=== PATIENT | female | born 1980 | race Caucasian/White ===

== ENCOUNTER 2017-01-11 14:40 | Emergency (ER) | payer MEDICAID, OTHER ==
[2017-01-11] MEDS ORDERED: NAPROXEN 250 MG TABLET PO STA (14:56)
[2017-01-11] MEDS ORDERED: NAPROXEN 250 MG TABLET PO ONE (15:04)
== END 2017-01-11 16:01 | disposition home or self-care (01) ==
DX: M70.62 Trochanteric bursitis, left hip (principal); M25.461 Effusion, right knee
CPT/HCPCS: 73564; 99283; A9270

== ENCOUNTER 2017-03-11 17:26 | Emergency (ER) | payer MEDICAID ==
[2017-03-11 18:00] LABS: BILIRUBIN,URINE NEGATIVE (NEGATIVE)
[2017-03-11 18:01] LABS: UA w/ MICROSCOPIC CHARGE YES
[2017-03-11 18:03] LABS: HCG UR QUAL NEGATIVE
[2017-03-11 18:16] LABS: UR CULTURE IF IND NOT INDICATED
--- NOTE | 2017-03-11 18:47 | ED Physician Documentation ---
PD HPI ABD PAIN - Stated complaint Stated Complaint: RT BACK PX - Chief complaint Chief Complaint: Back Pain - History obtained from History obtained from: Patient - History of Present Illness Timing - onset: Today (about 11 am) Timing - duration: Hours (7 hours ago) Timing - details: Abrupt onset, Still present (worse the past hour or so) Quality: Cramping, Aching, Pain Location: RLQ Radiation: Right flank Improved by: No: Eating, Laying still, Position Worsened by: No: Eating, Moving, Breathing, Position, Palpation Associated symptoms: Nausea, Vomiting, Loss of appetite. No: Fever, Diarrhea, Dysuria, Near syncope / syncope, Vaginal dc Similar symptoms before: Has not had sx before Recently seen: Not recently seen Review of Systems Constitutional: denies: Fever, Chills Nose: denies: Rhinorrhea / runny nose, Congestion Throat: denies: Sore throat Respiratory: denies: Cough GI: reports: Abdominal Pain, Nausea, Vomiting. denies: Abdominal Swelling, Diarrhea : denies: Dysuria, Frequency, Discharge Skin: denies: Rash, Lesions Musculoskeletal: reports: Back pain. denies: Neck pain PD PAST MEDICAL HISTORY - Past Medical History Past Medical History: Yes Respiratory: Asthma GI: None : None Other Past Medical History: migraines - Present Medications Home Medications: Ambulatory Orders Medication Instructions Recorded Confirmed Albuterol Sulfate [Proair Hfa 1 puffs PO DAILY 01/11/17 03/11/17 Inhaler] Ranitidine HCl 150 mg PO DAILY 01/11/17 03/11/17 Sumatriptan Succinate [Imitrex] 50 mg PO DAILY 01/11/17 03/11/17 Topiramate [Topamax] 50 mg PO DAILY 01/11/17 03/11/17 Naproxen [Naprosyn] 500 mg PO BID PRN #20 tablet 03/11/17 Ondansetron HCl [Zofran] 4 mg PO Q6H PRN #20 tablet 03/11/17 Oxycodone HCl/Acetaminophen 1 each PO Q6H PRN #20 tablet 03/11/17 [Percocet 5-325 mg Tablet] Tamsulosin [Flomax] 0.4 mg PO DAILY #5 capsule 03/11/17 - Allergies Allergies/Adverse Reactions: Allergies Allergy/AdvReac Type Severity Reaction Status Date / Time sulfamethoxazole Allergy Unknown Verified 01/11/17 14:48 [From ] trimethoprim [From ] Allergy Unknown Verified 01/11/17 14:48 - Social History Does the pt smoke?: No Smoking Status: Never smoker Does the pt drink ETOH?: No Does the pt have substance abuse?: No PD ED PE NORMAL - Vitals Vital signs reviewed: Yes - General General: Alert and oriented X 3, Well developed/nourished, Other (appeara in considerable pain right flank.) - HEENT HEENT: Atraumatic - Neck Neck: Supple, no meningeal sign, No adenopathy - Cardiac Cardiac: RRR, No murmur - Respiratory Respiratory: Clear bilaterally - Abdomen Abdomen: Normal bowel sounds, Soft, Non distended, No organomegaly, Other (some tenderness right lower without guarding. ) - Female Female : Deferred - Rectal Rectal: Deferred - Back Back: Other (rigth CVA area with marked tenderness to percussion. ) - Derm Derm: Normal color, Warm and dry - Neuro Neuro: Alert and oriented X 3, No motor deficit, No sensory deficit - Psych Psych: Normal mood, Normal affect Results - Vitals Vitals: Oxygen O2 Source Room air - Labs Labs: Laboratory Tests 03/11/17 03/11/17 03/11/17 17:55 17:55 19:22 WBC 9.6 RBC 5.36 Hgb 17.1 H Hct 50.3 H MCV 93.9 MCH 31.9 H MCHC 34.0 RDW 13.4 Plt Count 159 MPV 9.9 Neut # 7.4 H Lymph # 1.2 L Slope # 0.9 Eos # 0.1 Baso # 0.1 Absolute Nucleated RBC 0.00 Nucleated RBCs 0.1 Sodium Potassium Chloride Carbon Dioxide Anion Gap BUN Creatinine Estimated GFR (MDRD) Glucose Calcium Total Bilirubin AST ALT Alkaline Phosphatase Total Protein Albumin Globulin Albumin/Globulin Ratio Lipase Urine Color YELLOW Urine Clarity CLEAR Urine pH 7.0 Ur Specific [place] 1.015 1.015 Urine Protein NEGATIVE Urine Glucose (UA) NEGATIVE Urine Ketones TRACE Urine Occult Blood NEGATIVE Urine Nitrite NEGATIVE Urine Bilirubin NEGATIVE Urine Urobilinogen 0.2 (NORMAL) Ur Leukocyte Esterase TRACE H Urine RBC 0-5 Urine WBC 4-5 Ur Squamous Epith Cells MOD Squamous H Amorphous Sediment Few Urine Bacteria Few Urine Mucus Few Strands Ur Microscopic Review INDICATED Urine Culture Comments NOT INDICATED Urine HCG, Qual NEGATIVE 03/11/17 19:22 WBC RBC Hgb Hct MCV MCH MCHC RDW Plt Count MPV Neut # Lymph # Slope # Eos # Baso # Absolute Nucleated RBC Nucleated RBCs Sodium 138 Potassium 3.1 L Chloride 100 L Carbon Dioxide 29 Anion Gap 9.0 BUN 12 Creatinine 0.8 Estimated GFR (MDRD) 81 L Glucose 90 Calcium 9.0 Total Bilirubin 1.7 H AST 26 ALT 29 Alkaline Phosphatase 69 Total Protein 7.1 Albumin 4.3 Globulin 2.8 Albumin/Globulin Ratio 1.5 Lipase 15 L Urine Color Urine Clarity Urine pH Ur Specific [place] Urine Protein Urine Glucose (UA) Urine Ketones Urine Occult Blood Urine Nitrite Urine Bilirubin Urine Urobilinogen Ur Leukocyte Esterase Urine RBC Urine WBC Ur Squamous Epith Cells Amorphous Sediment Urine Bacteria Urine Mucus Ur Microscopic Review Urine Culture Comments Urine HCG, Qual - Rads (name of study) KUB CT Radiology: Prelim report reviewed, EMP read contemporaneously (4 mm stone proximal ureter with moderate obstruction) PD MEDICAL DECISION MAKING - ED course Complexity details: re-evaluated patient (feeling much better with IV meds, and stays mild level after awhile. Can try going home. ), considered differential ( likely kidney stone, but consider other abd process. ), d/w patient Departure - Departure Disposition: 01 Home, Self Care Clinical Impression: Flank pain, acute, Ureterolithiasis Condition: Stable Record reviewed to determine appropriate education?: Yes Instructions: ED Stone Renal W Colic Follow-Up: Angela Boudreaux PA [Primary Care Provider] - [facility] [Provider Group] Prescriptions: Tamsulosin [Flomax] 0.4 mg PO DAILY #5 capsule Naproxen [Naprosyn] 500 mg PO BID PRN #20 tablet PRN Reason: Pain Oxycodone HCl/Acetaminophen [Percocet 5-325 mg Tablet] 1 each PO Q6H PRN #20 tablet PRN Reason: Pain Ondansetron HCl [Zofran] 4 mg PO Q6H PRN #20 tablet PRN Reason: Nausea / Vomiting Comments: Drink lots of fluids. You have a 4 mm kidney stone in the upper part of the ureter. Typical these are given several days to try to pass and most do. Naproxen twice daily for inflammation and pain. Add Tylenol for mild pain and percocet for worse pain. Zofran if needed for nausea. Tamsulosin tries to help the ureter relax to allow easier passage. Follow up with Urology, call tomorrow for advise on follow up appt. Return to ER if severe pain again despite oral medications. Discharge Date/Time: 03/11/17 21:26
[2017-03-11] MEDS ORDERED: ONDANSETRON 4 MG/2 ML VIAL IVP STA (18:58)
[2017-03-11] MEDS ORDERED: HYDROmorphone 1 MG/ML SYRINGE IVP STA (18:58)
[2017-03-11] MEDS ORDERED: SODIUM CHLORIDE 0.9% 1,000 ML IV ONE (18:58)
[2017-03-11] MEDS ORDERED: KETOROLAC 60 MG/2 ML VIAL IVP STA (18:58)
[2017-03-11] MEDS ORDERED: KETOROLAC 30 MG/ML VIAL ONE (19:25)
[2017-03-11] MEDS ORDERED: HYDROmorphone 1 MG/ML SYRINGE ONE (19:26)
[2017-03-11] MEDS ORDERED: ONDANSETRON 4 MG/2 ML VIAL ONE (19:26)
[2017-03-11 19:34] LABS: BASOPHILS # (AUTO) 0.1 10^3/uL (0.0-0.1); BASOPHILS % (AUTO) 0.6 %; EOSINOPHILS # (AUTO) 0.1 10^3/uL (0.0-0.7); EOSINOPHILS % (AUTO) 0.9 %; HCT - HEMATOCRIT 50.3 % (37.0-47.0); HGB - HEMOGLOBIN 17.1 g/dL (12.0-16.0); LYMPHOCYTES # (AUTO) 1.2 10^3/uL (1.5-3.5); LYMPHOCYTES % (AUTO) 12.1 %; MEAN CORPUSCULAR HEMOGLOBIN 31.9 pg (27.0-31.0); MEAN CORPUSCULAR VOLUME 93.9 fL (81.0-99.0); MEAN PLATELET VOLUME 9.9 fL (7.9-10.8); MONOCYTES # (AUTO) 0.9 10^3/uL (0.0-1.0); MONOCYTES % (AUTO) 9.1 %; NEUTROPHILS # (AUTO) 7.4 10^3/uL (1.5-6.6); NEUTROPHILS % (AUTO) 77.3 %; NUCLEATED RED BLOOD CELLS AUTO 0.1 /100WBC; RED BLOOD COUNT 5.36 10^6/uL (4.20-5.40); RED CELL DISTRIBUTION WIDTH 13.4 % (12.0-15.0); UNCORRECTED WHITE BLOOD COUNT 9.6 x10^3/uL; WHITE BLOOD COUNT 9.6 x10^3/uL (4.8-10.8)
[2017-03-11 19:40] LABS: ALBUMIN/GLOBULIN RATIO 1.5 (1.0-2.2); BILIRUBIN,TOTAL 1.7 mg/dL (0.2-1.0); CREATININE 0.8 mg/dL (0.4-1.0); POTASSIUM 3.1 mmol/L (3.5-5.0); TOTAL PROTEIN 7.1 g/dL (6.7-8.2)
--- NOTE | 2017-03-11 19:46 | CT Preliminary Report ---
Exam: CT KUB IMPRESSION: 1. Obstructive 4 mm proximal right ureteral stones resulting in moderate to marked right hydroureter and hydronephrosis and perinephric fat stranding. Additional nonobstructing bilateral renal stones. N o obstructing left-sided stones. 2. Diverticulosis without inflammation. [facility] SITE ID: [id number]
--- NOTE | 2017-03-11 20:12 | CT Report ---
EXAM: CT ABDOMEN AND PELVIS (CT KUB) EXAM DATE: 03/11/2017 07:21 p.m. CLINICAL HISTORY: Right flank to low abdominal pain, onset 11 a.m. today. COMPARISONS: None. TECHNIQUE: Routine axial helical CT imaging was performed through the abdomen and pelvis without IV c ontrast. Reconstructions: Coronal and sagittal. In accordance with CT protocol optimization, one or more of the following dose reduction techniques w ere utilized for this exam: automated exposure control, adjustment of mA and/or KV based on patient s ize, or use of iterative reconstructive technique. FINDINGS: Lung Bases: Unremarkable. Right Kidney/Ureter: 4 mm proximal right ureteral stone results in moderate to marked hydroureter and hydronephrosis. Marked perinephric fat stranding. No contour deforming renal mass noted. At least f our nonobstructing right-sided stones including a 2 mm right mid and 2 mm right inferior stones. Left Kidney/Ureter: At least four nonobstructing left-sided renal stones ranging in size from 2-4 mm. No hydronephrosis, hydroureter or perinephric fat stranding. Other Solid Organs: Noncontrast images of the solid organs are grossly unremarkable. Gallbladder/Bile Ducts: Unremarkable. Peritoneal Cavity: No free fluid, free air or lilia adenopathy. Bowel is grossly unremarkable. There are multiple diverticula seen which most severely affect the sigmoid colon. No wall thickening or adj acent inflammation seen. No obstruction noted. Pelvic Organs: No bladder stones or wall thickening. Noncontrast images of the visualized pelvic orga ns are unremarkable. Vasculature: Unremarkable. Other: None. IMPRESSION: 1. Obstructing 4 mm proximal right ureteral stone results in moderate to marked right hydroureter and hydronephrosis and perinephric fat stranding. Additional nonobstructing bilateral renal stones. No o bstructing left-sided stones. 2. Diverticulosis without inflammation. [facility] Referring Provider Line: [phone] SITE ID: [id number]
[2017-03-11] MEDS ORDERED: DEXAMETHASONE 10 MG/ML VIAL IVP STA (20:44)
[2017-03-11] MEDS ORDERED: ONDANSETRON ODT 4 MG Prepack 2 TL PRN (20:44)
[2017-03-11] MEDS ORDERED: oxyCODONE/ACET 5/325 Prepack 4 PO STA (20:44)
[2017-03-11] MEDS ORDERED: TAMSULOSIN 0.4 MG CAPSULE PO STA (20:44)
[2017-03-11] MEDS ORDERED: DEXAMETHASONE 10 MG/ML VIAL ONE (20:49)
[2017-03-11] MEDS ORDERED: TAMSULOSIN 0.4 MG CAPSULE ONE (20:49)
[2017-03-11] MEDS ORDERED: oxyCODONE/ACET 5/325 Prepack 4 PO ONE (20:49)
[2017-03-11] MEDS ORDERED: ONDANSETRON ODT 4 MG Prepack 2 TL ONE (20:49)
[2017-03-11 20:56] VITALS: BP 145/92
== END 2017-03-11 21:26 | disposition home or self-care (01) ==
LOC: ED 17:26
DX: N20.1 Calculus of ureter (principal)
CPT/HCPCS: 36415; 74176; 80053; 81001; 81025; 83690; 85025; 96374; 96375; 99284; A9270; J1170; 81003; 87086

== ENCOUNTER 2017-10-10 05:03 | Emergency (ER) | payer MEDICAID ==
[2017-10-10 05:14] VITALS: BP 123/74
--- NOTE | 2017-10-10 05:23 | ED Physician Documentation ---
PD HPI HEENT - Stated complaint Stated Complaint: FACIAL PX - Chief complaint Chief Complaint: Heent - History obtained from History obtained from: Patient - History of Present Illness Timing - onset: How many days ago (few) Timing - duration: Days (few) Timing - details: Gradual onset, Still present Location: Tooth (left lower) Improves: No: Medication Associated symptoms: Facial swelling. No: Fever Recently seen: Not recently seen Review of Systems Constitutional: denies: Fever, Chills Nose: denies: Rhinorrhea / runny nose, Congestion Throat: reports: Dental pain / toothache. denies: Sore throat Respiratory: denies: Cough PD PAST MEDICAL HISTORY - Past Medical History Respiratory: Asthma GI: None : None - Present Medications Home Medications: Ambulatory Orders Medication Instructions Recorded Confirmed Albuterol Sulfate [Proair Hfa 1 puffs PO DAILY 01/11/17 03/11/17 Inhaler] Sumatriptan Succinate [Imitrex] 50 mg PO DAILY 01/11/17 03/11/17 Topiramate [Topamax] 50 mg PO DAILY 01/11/17 03/11/17 raNITIdine HCl [Ranitidine HCl] 150 mg PO DAILY 01/11/17 03/11/17 Naproxen [Naprosyn] 500 mg PO BID PRN #20 tablet 03/11/17 Ondansetron HCl [Zofran] 4 mg PO Q6H PRN #20 tablet 03/11/17 Oxycodone HCl/Acetaminophen 1 each PO Q6H PRN #20 tablet 03/11/17 [Percocet 5-325 mg Tablet] Tamsulosin [Flomax] 0.4 mg PO DAILY #5 capsule 03/11/17 Clindamycin HCl [Cleocin HCl] 300 mg PO QID #24 capsule 10/10/17 HYDROcod/ACETAM 5/325 [[place] 5/325] 1 tab PO Q6H PRN #15 tablet 10/10/17 - Allergies Allergies/Adverse Reactions: Allergies Allergy/AdvReac Type Severity Reaction Status Date / Time sulfamethoxazole Allergy Unknown Verified 10/10/17 05:10 [From ] trimethoprim [From ] Allergy Unknown Verified 10/10/17 05:10 - Social History Does the pt smoke?: No Smoking Status: Never smoker Does the pt drink ETOH?: No Does the pt have substance abuse?: No PD ED PE NORMAL - Vitals Vital signs reviewed: Yes - General General: Alert and oriented X 3, No acute distress, Well developed/nourished - HEENT HEENT: Moist mucous membranes, Pharynx benign. No: Dentition benign (left lower tooth with tenderness, caries. gum with swelling, but not fluctuance. Facial swelling, but not abscess feeling left mandibular area. ) - Neck Neck: Supple, no meningeal sign, No adenopathy - Cardiac Cardiac: RRR, No murmur - Respiratory Respiratory: Clear bilaterally Results - Vitals Vitals: Vital Signs - 24 hr 10/10/17 05:05 Temperature 37.0 C Heart Rate 85 Respiratory 18 Rate Blood Pressure 123/74 O2 Saturation 100 Oxygen O2 Source Room air PD MEDICAL DECISION MAKING - ED course Complexity details: considered differential, d/w patient Departure - Departure Disposition: 01 Home, Self Care Clinical Impression: Infected dental caries Condition: Stable Record reviewed to determine appropriate education?: Yes Instructions: ED Abscess Dental Follow-Up: Angela Boudreaux PA [Primary Care Provider] - Prescriptions: Clindamycin HCl [Cleocin HCl] 300 mg PO QID #24 capsule HYDROcod/ACETAM 5/325 [[place] 5/325] 1 tab PO Q6H PRN #15 tablet PRN Reason: Pain Comments: Rinse the mouth with antiseptic such as Listerine 2-3 times a day. Continue ibuprofen 400-600 mg 3 times a day for pain and inflammation. Add Tylenol or hydrocodone if needed for pain. Clindamycin 4 times a day as directed for the infection. Recheck if not improving well over the next several days. Follow- up with a dentist at earliest availability for care of this tooth and presumably extraction of it so it does not become recurring abscess. Ultimately you can get care from an oral surgeon for the multiple dental cavities. Discharge Date/Time: 10/10/17 06:15
[2017-10-10] MEDS ORDERED: ACETAMINOPHEN 325 MG TABLET PO STA (05:40)
[2017-10-10] MEDS ORDERED: CLINDAMYCIN 150 MG CAPSULE PO STA (05:40)
[2017-10-10] MEDS ORDERED: HYDROcod/ACET 5/325 Prepack 6 PO STA (05:40)
== END 2017-10-10 06:15 | disposition home or self-care (01) ==
LOC: ED 05:03
DX: K04.7 Periapical abscess without sinus (principal)
CPT/HCPCS: 99283; A9270

== ENCOUNTER 2017-11-07 12:08 | Emergency (ER) | payer OTHER, MEDICAID ==
[2017-11-07 12:21] VITALS: BP 112/78
--- NOTE | 2017-11-07 12:48 | ED Physician Documentation ---
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 She is latex allergic but we do not think the gloves were made of latex. There is no reaction anywhere other than the hands and wrists.) Review of Systems Constitutional: denies: Fever, Chills Respiratory: denies: Dyspnea, Cough GI: denies: Abdominal Pain : denies: Now EGA PD PAST MEDICAL HISTORY - Past Medical History Cardiovascular: None Respiratory: Asthma Neuro: None Endocrine/Autoimmune: None GI: None KNOT BORER: None : None HEENT: None Psych: None Musculoskeletal: None Derm: None - Present Medications Home Medications: Ambulatory Orders Medication Instructions Recorded Confirmed Albuterol Sulfate [Proair Hfa 1 puffs PO DAILY 01/11/17 03/11/17 Inhaler] Sumatriptan Succinate [Imitrex] 50 mg PO DAILY 01/11/17 03/11/17 Topiramate [Topamax] 50 mg PO DAILY 01/11/17 03/11/17 raNITIdine HCl [Ranitidine HCl] 150 mg PO DAILY 01/11/17 03/11/17 Ondansetron HCl [Zofran] 4 mg PO Q6H PRN #20 tablet 03/11/17 Triamcinolone 0.1% Oint [Kenalog 1 gm TOP BID #3 tube 11/07/17 0.1% Oint] predniSONE [Deltasone] 60 mg PO DAILY 3 Days tablet 11/07/17 - Allergies Allergies/Adverse Reactions: Allergies Allergy/AdvReac Type Severity Reaction Status Date / Time sulfamethoxazole Allergy Unknown Verified 10/10/17 05:10 [From ] trimethoprim [From ] Allergy Unknown Verified 10/10/17 05:10 - Social History Does the pt smoke?: No Smoking Status: Never smoker Does the pt drink ETOH?: No Does the pt have substance abuse?: No - Immunizations Immunizations are current?: No - POLST Patient has POLST: No PD ED PE NORMAL - Vitals Vital signs reviewed: Yes - General General: Alert and oriented X 3, No acute distress - Derm Derm: Other (She has mild eczema of the dorsal hands, with hypopigmentation.) - Neuro Neuro: Alert and oriented X 3, Normal speech Results - Vitals Vitals: Vital Signs - 24 hr 11/07/17 12:19 Temperature 36 C L Heart Rate 72 Respiratory 15 Rate Blood Pressure 112/78 O2 Saturation 100 Oxygen O2 Source Room air Departure - Departure Disposition: Home, Self Care Clinical Impression: Allergic eczema Condition: Good Record reviewed to determine appropriate education?: Yes Instructions: ED Dermatitis Atopic Eczema Prescriptions: predniSONE [Deltasone] 60 mg PO DAILY 3 Days tablet Triamcinolone 0.1% Oint [Kenalog 0.1% Oint] 1 gm TOP BID #3 tube Comments: Call your doctor to arrange a follow-up appointment, make the next available appointment. In the interim, return anytime if worse or if new symptoms develop. Forms: Activity restrictions Discharge Date/Time: 11/07/17 12:54
== END 2017-11-07 12:54 | disposition home or self-care (01) ==
LOC: ED 12:08
DX: L23.9 Allergic contact dermatitis, unspecified cause (principal); Z91.040 Latex allergy status
CPT/HCPCS: 1040M; 99283

== ENCOUNTER 2018-11-29 11:41 | Outpatient (CLI) | payer MEDICAID ==
[2018-11-29 18:58] LABS: BASOPHILS % (AUTO) 0.2 %; EOSINOPHILS # (AUTO) 0.1 10^3/uL (0.0-0.7); EOSINOPHILS % (AUTO) 2.7 %; HGB - HEMOGLOBIN 13.5 g/dL (12.0-16.0); LYMPHOCYTES # (AUTO) 1.7 10^3/uL (1.5-3.5); LYMPHOCYTES % (AUTO) 36.7 %; MEAN CORPUSCULAR HEMOGLOBIN 29.6 pg (27.0-31.0); MEAN CORPUSCULAR HGB CONC 33.2 g/dL (32.0-36.0); MEAN CORPUSCULAR VOLUME 89.2 fL (81.0-99.0); MEAN PLATELET VOLUME 9.8 fL (7.9-10.8); MONOCYTES # (AUTO) 0.3 10^3/uL (0.0-1.0); MONOCYTES % (AUTO) 6.9 %; NEUTROPHILS # (AUTO) 2.4 10^3/uL (1.5-6.6); NEUTROPHILS % (AUTO) 53.5 %; PLT - PLATELET COUNT 193 10^3/uL (130-450); RED BLOOD COUNT 4.57 10^6/uL (4.20-5.40); RED CELL DISTRIBUTION WIDTH 12.7 % (12.0-15.0); WHITE BLOOD COUNT 4.6 x10^3/uL (4.8-10.8)
[2018-11-29 19:38] LABS: ALBUMIN 4.2 g/dL (3.2-5.5); ALBUMIN/GLOBULIN RATIO 1.7 (1.0-2.2); ALKALINE PHOSPHATASE 52 IU/L (42-121); ALT ALANINE AMINOTRANSFERASE 13 IU/L (10-60); AST ASPARTATE AMINOTRANSFERASE 17 IU/L (10-42); BILIRUBIN,TOTAL 0.9 mg/dL (0.2-1.0); BUN - BLOOD UREA NITROGEN 15 mg/dL (6-20); CALCIUM 8.6 mg/dL (8.5-10.3); CARBON DIOXIDE - CO2 22 mmol/L (21-32); CHLORIDE 106 mmol/L (101-111); CHOL/HDL RATIO 2.2 (<4.4); CHOLESTEROL 131 mg/dL; CREATININE 0.7 mg/dL (0.4-1.0); GFR - MDRD 94 (>89); GLUCOSE 79 mg/dL (70-100); HDL CHOLESTEROL 60 mg/dL; LDL CHOLESTEROL,CALCULATED 62 mg/dL; SODIUM 137 mmol/L (135-145); TOTAL PROTEIN 6.7 g/dL (6.7-8.2); VLDL CHOLESTEROL 9 mg/dL
== END 2018-11-29 23:59 ==
LOC: LAB.N 11:41
PROVIDERS: ATTEND Nurse Practitioner
DX: F41.9 Anxiety disorder, unspecified (principal); G47.00 Insomnia, unspecified; G43.109 Migraine with aura, not intractable, without status migrainosus; R03.0 Elevated blood-pressure reading, without diagnosis of hypertension; R53.83 Other fatigue; E55.9 Vitamin D deficiency, unspecified
CPT/HCPCS: 36415; 80053; 80061; 82306; 83721; 84443; 85025

== ENCOUNTER 2018-12-02 20:15 | Emergency (ER) | payer MEDICAID ==
[2018-12-02 21:09] VITALS: BP 122/74
== END 2018-12-02 22:05 | disposition left against medical advice (07) ==
LOC: ED 20:15
DX: Z53.21 Procedure and treatment not carried out due to patient leaving prior to being seen by health care provider (principal)

== ENCOUNTER 2019-05-19 08:00 | Outpatient (CLI) | payer MEDICAID ==
[2019-05-19 21:49] LABS: CANDIDA GROUP DNA POSITIVE (NEGATIVE); CANDIDA KRUSEI DNA NEGATIVE (NEGATIVE); TRICHOMONAS VAGINALIS DNA NEGATIVE (NEGATIVE)
[2019-05-19 22:21] LABS: TRICHOMONAS VAGINALIS DNA NEGATIVE (NEGATIVE)
== END 2019-05-19 23:59 | disposition home or self-care (01) ==
LOC: LAB.R 08:00
PROVIDERS: ATTEND Obstetrics & Gynecology
DX: N93.0 Postcoital and contact bleeding (principal); Z20.2 Contact with and (suspected) exposure to infections with a predominantly sexual mode of transmission
CPT/HCPCS: 87491; 87591; 87661; 87801

== ENCOUNTER 2019-05-19 11:57 | Outpatient (CLI) | payer MEDICAID ==
[2019-05-20 11:09] LABS: HIV AG/AB 4TH GEN NON-REACTIVE (NON-REACTIVE)
== END 2019-05-19 11:58 | disposition home or self-care (01) ==
LOC: LAB 11:57
PROVIDERS: ATTEND Obstetrics & Gynecology
DX: N93.0 Postcoital and contact bleeding (principal); Z20.2 Contact with and (suspected) exposure to infections with a predominantly sexual mode of transmission
CPT/HCPCS: 36415; 81599; 86592; 86704; 86706; 86708; 86803; 87340; 87389; 87491; 87591; 87661; 87801

== ENCOUNTER 2019-06-13 16:20 | Outpatient (CLI) | payer MEDICAID ==
--- NOTE | 2019-06-14 08:30 | Ultrasound Report ---
Reason: POSTCOITAL BLEEDING, ABN VAGINAL BLEEDING Procedure Date: 06/13/2019 Accession Number: [id number] / [id number] Procedure: US - Pelvic w/Transvaginal CPT Code: FULL RESULT: EXAM: PELVIC ULTRASOUND EXAM DATE: 06/13/2019 05:10 PM. CLINICAL HISTORY: Abnormal postcoital vaginal bleeding. COMPARISON: None. TECHNIQUE: Realtime transabdominal pelvic scan performed to identify the uterus and adnexa and as an overview of other pelvic structures. Patient refused transvaginal imaging. Static image documentation. FINDINGS: Uterus: 6.9 x 3.6 x 11.5 cm, volume 59 cc. Anteverted position. Normal overall size and echotexture. Masses: None. Endometrium: 5.0 mm. Trace fluid within endometrial canal. Cervix: Unremarkable. Right Ovary: 3.2 x 1.6 x 2.6 cm, volume 7.0 cc. There is a benign appearing right ovarian cyst measuring 1.8 cm maximal diameter. No solid adnexal mass. Left Ovary: 3.1 x 2.3 x 2.6 cm, volume 9.8 cc. There is a benign appearing left ovarian cyst measuring 2.1 cm maximal diameter. Free Fluid: None. Other: None. IMPRESSION: 1. Small bilateral ovarian follicular cysts for which imaging follow-up is not required. 2. Trace endometrial fluid. 3. Otherwise negative examination. [facility]
== END 2019-06-13 16:21 | disposition home or self-care (01) ==
LOC: DI 16:20
PROVIDERS: ATTEND Obstetrics & Gynecology
DX: N83.02 Follicular cyst of left ovary (principal); N83.01 Follicular cyst of right ovary; N93.0 Postcoital and contact bleeding; N93.9 Abnormal uterine and vaginal bleeding, unspecified
CPT/HCPCS: 76830; 76856

== ENCOUNTER 2020-04-25 11:13 | Outpatient (CLI) | payer MEDICAID ==
[2020-04-25 18:58] LABS: BASOPHILS % (AUTO) 0.3 %; EOSINOPHILS # (AUTO) 0.1 10^3/uL (0.0-0.7); EOSINOPHILS % (AUTO) 1.7 %; HGB - HEMOGLOBIN 13.6 g/dL (12.0-16.0); LYMPHOCYTES # (AUTO) 1.5 10^3/uL (1.5-3.5); LYMPHOCYTES % (AUTO) 24.3 %; MEAN CORPUSCULAR HEMOGLOBIN 27.8 pg (27.0-31.0); MEAN CORPUSCULAR VOLUME 89.6 fL (81.0-99.0); MEAN PLATELET VOLUME 10.3 fL (7.9-10.8); MONOCYTES # (AUTO) 0.4 10^3/uL (0.0-1.0); MONOCYTES % (AUTO) 6.8 %; NEUTROPHILS % (AUTO) 66.6 %; PLT - PLATELET COUNT 292 10^3/uL (130-450); RED CELL DISTRIBUTION WIDTH 13.6 % (12.0-15.0)
[2020-04-25 19:39] LABS: ALBUMIN 4.3 g/dL (3.2-5.5); ALBUMIN/GLOBULIN RATIO 1.5 (1.0-2.2); ALKALINE PHOSPHATASE 64 IU/L (42-121); ALT ALANINE AMINOTRANSFERASE 12 IU/L (10-60); AST ASPARTATE AMINOTRANSFERASE 14 IU/L (10-42); BILIRUBIN,TOTAL 0.4 mg/dL (0.2-1.0); BUN - BLOOD UREA NITROGEN 19 mg/dL (6-20); CALCIUM 9.5 mg/dL (8.5-10.3); CARBON DIOXIDE - CO2 27 mmol/L (21-32); CHLORIDE 105 mmol/L (101-111); CHOL/HDL RATIO 2.3 (<4.4); CHOLESTEROL 142 mg/dL; CREATININE 0.9 mg/dL (0.4-1.0); GLUCOSE 92 mg/dL (70-100); HDL CHOLESTEROL 61 mg/dL; LDL CHOLESTEROL,CALCULATED 73 mg/dL; LDL/HDL RATIO 1.2 (<4.4); SODIUM 140 mmol/L (135-145); TOTAL PROTEIN 7.2 g/dL (6.7-8.2); VLDL CHOLESTEROL 8 mg/dL
== END 2020-04-25 23:59 | disposition home or self-care (01) ==
LOC: LAB.WCP 11:13
PROVIDERS: ATTEND Nurse Practitioner Family
DX: R03.0 Elevated blood-pressure reading, without diagnosis of hypertension (principal); F41.9 Anxiety disorder, unspecified; J45.40 Moderate persistent asthma, uncomplicated; K21.9 Gastro-esophageal reflux disease without esophagitis; G43.109 Migraine with aura, not intractable, without status migrainosus
CPT/HCPCS: 36415; 80053; 80061; 83721; 84443; 85025

== ENCOUNTER 2020-04-25 12:43 | Outpatient (CLI) | payer MEDICAID ==
--- NOTE | 2020-04-25 15:33 | XRAY Report ---
PROCEDURE: Lumbar Spine 2 View INDICATIONS: LOW BACK PAIN TECHNIQUE: 3 views of the lumbar spine were acquired. COMPARISON: None. FINDINGS: Bones: 5 [id number] vertebrae are present. There is normal bony alignment. No vertebral body compression fractures. No suspicious bony lesions. Soft tissues: Overlying bowel gas pattern is normal. No suspicious soft tissue calcifications. IMPRESSION: No trauma found, no subluxation present. A definite source of new back pain is not ident ified. Reviewed by: George Pond MD on 04/25/2020 12:44 PM PDT Approved by: George Pond MD on 04/25/2020 12:44 PM PDT Station ID: [id number]
--- NOTE | 2020-04-25 15:34 | XRAY Report ---
PROCEDURE: Hip 1 View LT INDICATIONS: LEFT HIP PAIN TECHNIQUE: 2 views of the hip were acquired. COMPARISON: CT KUB 03/11/2017. FINDINGS: Bones: No fractures or dislocations. There is a mild degree of hip joint osteoarthritis bilaterally slightly greater on the right than the left. No suspicious bony lesions. The visualized pelvic ring appears intact. Soft tissues: No suspicious soft tissue calcifications or masses. IMPRESSION: No trauma found. Mild bilateral hip joint osteoarthritis, slightly greater on the right than the left . Reviewed by: Goerge Pond MD on 04/25/2020 12:45 PM PDT Approved by: George Pond MD on 04/25/2020 12:45 PM PDT Station ID: [id number]
== END 2020-04-25 23:59 | disposition home or self-care (01) ==
LOC: DI.WCP 12:43
PROVIDERS: ATTEND Nurse Practitioner Family
DX: M54.5 Low back pain (principal); M16.0 Bilateral primary osteoarthritis of hip
CPT/HCPCS: 72100

== ENCOUNTER 2020-05-17 07:00 | Outpatient (CLI) | payer MEDICAID ==
[2020-05-18 19:35] LABS: TRICHOMONAS VAGINALIS DNA NEGATIVE (NEGATIVE)
[2020-05-18 21:32] LABS: CANDIDA GROUP DNA NEGATIVE (NEGATIVE); CANDIDA KRUSEI DNA NEGATIVE (NEGATIVE); TRICHOMONAS VAGINALIS DNA NEGATIVE (NEGATIVE)
== END 2020-05-17 23:59 | disposition home or self-care (01) ==
LOC: LAB.R 07:00
PROVIDERS: ATTEND Obstetrics & Gynecology
DX: N93.0 Postcoital and contact bleeding (principal)
CPT/HCPCS: 87491; 87591; 87661; 87801

== ENCOUNTER 2020-07-06 10:59 | Outpatient (CLI) | payer MEDICAID ==
[2020-07-06 11:23] LABS: BASOPHILS % (AUTO) 0.4 %; EOSINOPHILS # (AUTO) 0.1 10^3/uL (0.0-0.7); EOSINOPHILS % (AUTO) 1.8 %; HGB - HEMOGLOBIN 15.6 g/dL (12.0-16.0); LYMPHOCYTES # (AUTO) 1.3 10^3/uL (1.5-3.5); LYMPHOCYTES % (AUTO) 23.5 %; MEAN CORPUSCULAR HEMOGLOBIN 28.2 pg (27.0-31.0); MEAN CORPUSCULAR HGB CONC 31.6 g/dL (32.0-36.0); MEAN PLATELET VOLUME 9.6 fL (7.9-10.8); MONOCYTES # (AUTO) 0.4 10^3/uL (0.0-1.0); MONOCYTES % (AUTO) 7.2 %; NEUTROPHILS # (AUTO) 3.7 10^3/uL (1.5-6.6); NEUTROPHILS % (AUTO) 66.9 %; PLT - PLATELET COUNT 224 10^3/uL (130-450); RED BLOOD COUNT 5.54 10^6/uL (4.20-5.40); RED CELL DISTRIBUTION WIDTH 11.9 % (12.0-15.0); WHITE BLOOD COUNT 5.5 x10^3/uL (4.8-10.8)
== END 2020-07-06 11:00 | disposition home or self-care (01) ==
LOC: LAB 10:59
PROVIDERS: ATTEND Obstetrics & Gynecology
DX: Z01.812 Encounter for preprocedural laboratory examination (principal); Z20.828 Contact with and (suspected) exposure to other viral communicable diseases; N94.6 Dysmenorrhea, unspecified; R10.2 Pelvic and perineal pain
CPT/HCPCS: 36415; 85025; 87640

== ENCOUNTER 2020-07-21 17:20 | Emergency (ER) | payer MEDICAID ==
[2020-07-21] MEDS ORDERED: HYDROmorphone 1 MG/ML CARPUJECT IVP STA (17:41)
[2020-07-21] MEDS ORDERED: KETOROLAC 30 MG/ML VIAL IVP STA (17:41)
[2020-07-21] MEDS ORDERED: SODIUM CHLORIDE 0.9% 1,000 ML IV STA (17:41)
[2020-07-21] MEDS ORDERED: ONDANSETRON 4 MG/2 ML VIAL IVP STA (17:41)
--- NOTE | 2020-07-21 17:42 | ED Physician Documentation ---
PD HPI ABD PAIN - Stated complaint Stated Complaint: BACK PX - Chief complaint Chief Complaint: Abd Pain - History obtained from History obtained from: Patient - Additional information Additional information: 40-year-old woman with history of conservatively managed renal colic x1 presents with severe right flank pain radiating the right lower quadrant starting this morning. Waxing and waning. It is associated with severe nausea but no vomiting although she "got close." She has had dark urine. No fevers. She just cannot get comfortable. It is reminiscent of a kidney stone that she had prior, but more gradual in onset. Review of Systems Ten Systems: 10 systems reviewed and negative Constitutional: denies: Fever, Chills Cardiac: denies: Chest pain / pressure, Palpitations Respiratory: denies: Dyspnea, Cough PD PAST MEDICAL HISTORY - Past Medical History Past Medical History: Yes Cardiovascular: None Respiratory: Asthma Endocrine/Autoimmune: None GI: GERD NURSERY WORKER: None : Kidney stones HEENT: None Psych: Depression, Anxiety, Panic attacks Musculoskeletal: Osteoarthritis Derm: None - Past Surgical History Past Surgical History: Yes - Present Medications Home Medications: Ambulatory Orders Medication Instructions Recorded Confirmed Albuterol Sulfate [Proair Hfa 2 puffs PO Q4HR PRN 01/11/17 07/05/20 Inhaler] Sumatriptan Succinate [Imitrex] 50 mg PO ONCE PRN 01/11/17 07/05/20 Topiramate [Topamax] 100 mg PO QPM 01/11/17 07/05/20 Cholecalciferol (Vitamin D3) 5,000 unit PO DAILY 07/05/20 07/05/20 [Vitamin D3] Famotidine 20 mg PO DAILY 07/05/20 07/05/20 Lactobacillus Acidophilus 1 each PO DAILY 07/05/20 07/05/20 [Probiotic Acidophilus] Prazosin HCl 2 mg PO QPM 07/05/20 07/05/20 Propranolol HCl 10 mg PO TID 07/05/20 07/05/20 Sertraline HCl 100 mg PO DAILY 07/05/20 07/05/20 hydrOXYzine HCL [Hydroxyzine HCl] 50 mg PO TID 07/05/20 07/05/20 Ciprofloxacin HCl [Cipro] 500 mg PO BID #20 tablet 07/21/20 HYDROcod/ACETAM 5/325 [[place] 5/325] 1 - 2 tab PO Q6H PRN #15 tablet 07/21/20 Ondansetron Odt [Zofran] 4 mg TL Q6H PRN #10 tablet 07/21/20 - Allergies Allergies/Adverse Reactions: Allergies Allergy/AdvReac Type Severity Reaction Status Date / Time sulfamethoxazole Allergy Unknown Verified 12/02/18 21:10 [From Septra] trimethoprim [From Septra] Allergy Unknown Verified 12/02/18 21:10 fluoxetine [From Prozac] AdvReac Headache Verified 07/21/20 17:30 - Social History Does the pt smoke?: No Smoking Status: Never smoker Does the pt drink ETOH?: No Does the pt have substance abuse?: No - Immunizations Immunizations are current?: No - POLST Patient has POLST: No PD ED PE NORMAL - Vitals Vital signs reviewed: Yes - General General: Alert and oriented X 3, Other (uncomfortable) - HEENT HEENT: PERRL, EOMI - Neck Neck: Supple, no meningeal sign, No bony TTP - Cardiac Cardiac: RRR, No murmur - Respiratory Respiratory: No respiratory distress, Clear bilaterally - Abdomen Abdomen: Soft, Non tender - Back Back: No CVA TTP, No spinal TTP - Derm Derm: Normal color, Warm and dry - Extremities Extremities: No edema, No calf tenderness / cord - Neuro Neuro: Alert and oriented X 3, Normal speech Results - Vitals Vitals: Vital Signs - 24 hr 07/21/20 07/21/20 17:28 17:30 Temperature 36.5 C 36.6 C Heart Rate 97 97 Respiratory 17 17 Rate Blood Pressure 122/77 122/77 O2 Saturation 99 99 Oxygen O2 Source Room air - Labs Labs: Laboratory Tests 07/21/20 07/21/20 07/21/20 17:36 17:55 17:55 WBC 11.1 H RBC 5.71 H Hgb 16.2 H Hct 49.0 H MCV 85.8 MCH 28.4 MCHC 33.1 RDW 12.0 Plt Count 284 MPV 9.7 Neut # (Auto) 8.7 H Lymph # (Auto) 1.2 L [place] # (Auto) 1.1 H Eos # (Auto) 0.1 Baso # (Auto) 0.0 Absolute Nucleated RBC 0.00 Nucleated RBC % 0.0 Sodium 142 Potassium 3.4 L Chloride 106 Carbon Dioxide 24 Anion Gap 12.0 BUN 20 Creatinine 1.0 Estimated GFR (MDRD) 61 L Glucose 98 Calcium 9.6 Total Bilirubin 0.8 AST 15 ALT 12 Alkaline Phosphatase 67 Total Protein 7.8 Albumin 4.4 Globulin 3.4 Albumin/Globulin Ratio 1.3 Lipase 21 L Urine Color YELLOW Urine Clarity CLOUDY Urine pH 5.5 Ur Specific [place] 1.025 Urine Protein NEGATIVE Urine Glucose (UA) NEGATIVE Urine Ketones NEGATIVE Urine Occult Blood LARGE H Urine Nitrite POSITIVE H Urine Bilirubin NEGATIVE Urine Urobilinogen 0.2 (NORMAL) Ur Leukocyte Esterase SMALL H Urine RBC 6-10 H Urine WBC 0-3 Ur Squamous Epith Cells RARE Squamous Urine Bacteria Moderate H Ur Microscopic Review INDICATED Urine Culture Comments INDICATED Urine HCG, Qual NEGATIVE She has a history of kidney stones, but this was more gradual in onset. Urine is infected and she has a mild white count. There is no evidence of hydronephrosis or ureterolithiasis so - Rads (name of study) Retroperitoneal ultrasound Radiology: EMP read contemporaneously (Mild right pelviectasis and nonobstructive nephrolithiasis without hydronephrosis.) PD MEDICAL DECISION MAKING - ED course ED course: She has a history of kidney stones, but this was more gradual in onset. Urine is infected and she has a mild white count. There is no evidence of hydronephrosis or ureterolithiasis so diagnosis is simply pyelonephritis. She is treated with Rocephin here. Departure - Departure Disposition: 01 Home, Self Care Clinical Impression: Pyelonephritis Condition: Good Record reviewed to determine appropriate education?: Yes Instructions: ED Kidney Infec Female Prescriptions: Ciprofloxacin HCl [Cipro] 500 mg PO BID #20 tablet HYDROcod/ACETAM 5/325 [[place] 5/325] 1 - 2 tab PO Q6H PRN #15 tablet PRN Reason: Pain Ondansetron Odt [Zofran] 4 mg TL Q6H PRN #10 tablet PRN Reason: Nausea / Vomiting Comments: Follow-up with your doctor in about 3 days for recheck. We will perform a urine culture and if a resistant organism is isolated we will call you in approximately 2 to 3 days time to change antibiotics. That said if you are worsening or not improving in that timeframe please return for reevaluation.
[2020-07-21 17:48] LABS: BILIRUBIN,URINE NEGATIVE (NEGATIVE); CLARITY,URINE CLOUDY (CLEAR); GLUCOSE, URINE (UA) NEGATIVE (NEGATIVE); HCG UR QUAL NEGATIVE; KETONES,URINE (UA) NEGATIVE (NEGATIVE); LEUKOCYTE ESTERASE, URINE SMALL (NEGATIVE); NITRITE,URINE POSITIVE (NEGATIVE); OCCULT BLOOD,URINE LARGE (NEGATIVE); PH,URINE 5.5 PH (5.0-7.5); PROTEIN,URINE NEGATIVE (NEGATIVE); UROBILINOGEN,URINE 0.2 (NORMAL) E.U./dL (NORMAL)
[2020-07-21 17:56] LABS: BACTERIA,URINE Moderate /HPF (None Seen); SQUAMOUS EPITHELIAL CELL,UR RARE Squamous (<= Few)
[2020-07-21 18:02] LABS: BASOPHILS % (AUTO) 0.4 %; EOSINOPHILS # (AUTO) 0.1 10^3/uL (0.0-0.7); EOSINOPHILS % (AUTO) 0.6 %; HGB - HEMOGLOBIN 16.2 g/dL (12.0-16.0); LYMPHOCYTES # (AUTO) 1.2 10^3/uL (1.5-3.5); LYMPHOCYTES % (AUTO) 10.7 %; MEAN CORPUSCULAR HEMOGLOBIN 28.4 pg (27.0-31.0); MEAN CORPUSCULAR HGB CONC 33.1 g/dL (32.0-36.0); MEAN CORPUSCULAR VOLUME 85.8 fL (81.0-99.0); MEAN PLATELET VOLUME 9.7 fL (7.9-10.8); MONOCYTES # (AUTO) 1.1 10^3/uL (0.0-1.0); NEUTROPHILS # (AUTO) 8.7 10^3/uL (1.5-6.6); NEUTROPHILS % (AUTO) 77.8 %; PLT - PLATELET COUNT 284 10^3/uL (130-450); RED BLOOD COUNT 5.71 10^6/uL (4.20-5.40); WHITE BLOOD COUNT 11.1 x10^3/uL (4.8-10.8)
[2020-07-21 18:15] LABS: ALBUMIN 4.4 g/dL (3.2-5.5); ALBUMIN/GLOBULIN RATIO 1.3 (1.0-2.2); BILIRUBIN,TOTAL 0.8 mg/dL (0.2-1.0); CALCIUM 9.6 mg/dL (8.5-10.3); TOTAL PROTEIN 7.8 g/dL (6.7-8.2)
--- NOTE | 2020-07-21 19:15 | Ultrasound Report ---
PROCEDURE: Retroperitoneal INDICATIONS: r renal colic TECHNIQUE: Real-time scanning was performed of the retroperitoneal organs, with image documentation. COMPARISON: None. FINDINGS: Kidneys: Kidneys are normal in size. Right kidney measures 12.5 cm long; left kidney measures 8.8 c m long. Right renal cortical thickness is 1.4 cm; left renal cortical thickness is 1.3 cm. No solid masses or hydronephrosis. There is mild right pelviectasis. Punctate echogenic foci are noted throug hout the kidney suggesting nonobstructing stones. Prevoid bladder volume is 6.2 cc. The ureteral jets were not visualized. The patient voided just prio r to the study. Miscellaneous: No free abdominal fluid. IMPRESSION: 1. Mild right pelviectasis. 2. Nonobstructive nephrolithiasis. Reviewed by: Keke Jones MD on 07/21/2020 7:13 PM PST Approved by: Keke Jones MD on 07/21/2020 7:13 PM PST Station ID: [id number]
[2020-07-21] MEDS ORDERED: cefTRIAXone 1 GM in SODIUM CHLORIDE 0.9% MINIBAG 100 ML IV STA (19:31)
[2020-07-21] MEDS ORDERED: ONDANSETRON ODT 4 MG Prepack 2 TL STA (19:38)
[2020-07-21] MEDS ORDERED: HYDROcod/ACET 5/325 Prepack 4 PO STA (19:38)
[2020-07-21] MEDS ORDERED: cefTRIAXone 1 GM VIAL ONE (19:49)
[2020-07-21 20:26] VITALS: BP 120/81
== END 2020-07-21 20:40 | disposition home or self-care (01) ==
LOC: ED 17:20
DX: N12 Tubulo-interstitial nephritis, not specified as acute or chronic (principal)
CPT/HCPCS: 36415; 76770; 80053; 81001; 81025; 83690; 85025; 87086; 87181; 96361; 96365; 96375; 99284; J1170; 81003

== ENCOUNTER 2021-08-29 08:00 | Outpatient (CLI) | payer MEDICAID ==
[2021-08-29 23:29] LABS: CHLAMYDIA TRACHOMATIS DNA NEGATIVE (NEGATIVE); NEISSERIA GONORRHOEAE DNA NEGATIVE (NEGATIVE); TRICHOMONAS VAGINALIS DNA NEGATIVE (NEGATIVE)
== END 2021-08-29 23:59 ==
LOC: LAB 08:00
PROVIDERS: ATTEND Obstetrics & Gynecology
DX: Z11.3 Encounter for screening for infections with a predominantly sexual mode of transmission (principal)
CPT/HCPCS: 87491; 87591; 87661

== ENCOUNTER 2021-09-11 19:25 | Emergency (ER) | payer MEDICAID ==
[2021-09-11] MEDS ORDERED: ALBUTEROL 1 PUFF INH STA (20:28)
[2021-09-11] MEDS ORDERED: predniSONE 20 MG TABLET PO STA (20:28)
[2021-09-11] MEDS ORDERED: IBUPROFEN 800 MG TABLET PO STA (20:29)
--- NOTE | 2021-09-11 20:31 | ED Physician Documentation ---
History of Present Illness - Stated complaint Stated Complaint: N/COUGH/SOA/HEADACHE/STUFFY - Chief complaint Chief Complaint: Resp - History obtained from History obtained from: Patient - History of Present Illness Timing: Today Pain level max: 5 Pain level now: 4 - Additonal information Additional information: 41-year-old female presents to the emergency department with cough, congestion and increased work of breathing. She states she has an albuterol inhaler but is out of her nebulizer solution. She has recently been exposed to Covid. She is not vaccinated. Nothing makes it better or worse. Review of Systems Ten Systems: 10 systems reviewed and negative Constitutional: denies: Fever, Chills Nose: reports: Rhinorrhea / runny nose, Congestion Respiratory: reports: Cough, Wheezing GI: reports: Nausea. denies: Abdominal Pain, Vomiting, Diarrhea Skin: denies: Rash Musculoskeletal: denies: Neck pain, Back pain Neurologic: denies: Headache PD PAST MEDICAL HISTORY - Past Medical History Past Medical History: Yes Cardiovascular: None Respiratory: Asthma Endocrine/Autoimmune: None GI: GERD LIBRARY SERVICES ASSISTANT: None : Kidney stones HEENT: None Psych: Depression, Anxiety, Panic attacks Musculoskeletal: Osteoarthritis Derm: None - Past Surgical History Past Surgical History: Yes - Present Medications Home Medications: Ambulatory Orders Medication Instructions Recorded Confirmed Albuterol Sulfate [Proair Hfa 2 puffs PO Q4HR PRN 01/11/17 09/11/21 Inhaler] Sumatriptan Succinate [Imitrex] 50 mg PO ONCE PRN 01/11/17 09/11/21 Topiramate [Topamax] 100 mg PO QPM 01/11/17 09/11/21 Cholecalciferol (Vitamin D3) 5,000 unit PO DAILY 07/05/20 09/11/21 [Vitamin D3] Famotidine 20 mg PO DAILY 07/05/20 09/11/21 Prazosin HCl 2 mg PO QPM 07/05/20 09/11/21 Propranolol HCl 10 mg PO TID 07/05/20 09/11/21 Sertraline HCl 100 mg PO DAILY 07/05/20 09/11/21 hydrOXYzine HCL [Hydroxyzine HCl] 50 mg PO TID 07/05/20 09/11/21 Ondansetron Odt [Zofran] 4 mg TL Q6H PRN #10 tablet 07/21/20 09/11/21 Albuterol 2.5 mg INH Q4H PRN #30 ml 09/11/21 Ibuprofen [Motrin] 800 mg PO Q8H PRN #30 tablet 09/11/21 predniSONE [Deltasone] 10 mg PO [id number] #42 tab 09/11/21 - Allergies Allergies/Adverse Reactions: Allergies Allergy/AdvReac Type Severity Reaction Status Date / Time sulfamethoxazole Allergy Unknown Verified 09/11/21 19:34 [From Septra] trimethoprim [From Septra] Allergy Unknown Verified 09/11/21 19:34 fluoxetine [From Prozac] AdvReac Headache Verified 09/11/21 19:34 - Social History Does the pt smoke?: No Smoking Status: Never smoker Does the pt drink ETOH?: No Does the pt have substance abuse?: No - Immunizations Immunizations are current?: No - POLST Patient has POLST: No PD ED PE NORMAL - Vitals Vital signs reviewed: Yes - General General: Alert and oriented X 3, No acute distress - HEENT HEENT: Ears normal, Moist mucous membranes, Pharynx benign - Neck Neck: Supple, no meningeal sign - Cardiac Cardiac: RRR, Strong equal pulses - Respiratory Respiratory: No respiratory distress, Other (diminished breath sounds bilaterally) - Abdomen Abdomen: Soft, Non tender, Non distended - Derm Derm: Warm and dry, No rash - Neuro Neuro: Alert and oriented X 3 - Psych Psych: Normal mood, Normal affect Results - Vitals Vitals: Vital Signs - 24 hr 09/11/21 09/11/21 09/11/21 19:31 20:35 20:41 Temperature 36.6 C 36.5 C Heart Rate 89 88 88 Respiratory 18 18 14 Rate Blood Pressure 118/73 120/75 O2 Saturation 99 98 Oxygen O2 Source Room air PD MEDICAL DECISION MAKING - ED course Complexity details: re-evaluated patient, considered differential, d/w patient ED course: Patient with likely Covid. Feels better after steroids and albuterol. Will place her on steroids and albuterol for home. Has a history of asthma. No indication for x-ray or antibiotics at this time. Patient counseled regarding signs and symptoms for which I believe and urgent re-evaluation would be necessary. Patient with good understanding of and agreement to plan and is comfortable going home at this time This document was made in part using voice recognition software. While efforts are made to proofread this document, sound alike and grammatical errors may occur. Departure - Departure Disposition: 01 Home, Self Care Clinical Impression: Viral URI Condition: Good Instructions: ED Viral Syndrome Follow-Up: your,doctor in 1 week [Other] Prescriptions: Albuterol 2.5 mg INH Q4H PRN #30 ml PRN Reason: Wheezing predniSONE [Deltasone] 10 mg PO [id number] #42 tab Ibuprofen [Motrin] 800 mg PO Q8H PRN #30 tablet PRN Reason: PAIN &/OR FEVER Comments: Your prescriptions were sent to [facility] in [place]. Please follow-up with your doctor as needed for further care. Return if you worsen. Drink plenty of fluids and rest. You have a Covid test pending. You need to self quarantine until the result is done and negative. The results should be done in 24-48 hours. We will call with a positive result, the fastest way to get a negative result for confirmation though is to go to the hospital website at [email or web address], click on the my [facility] tab and sign up for the patient portal. If any of your friends and/or family need to be tested, they can call the hospital at [phone] for an appointment to have their Covid test. Discharge Date/Time: 09/11/21 20:52
[2021-09-11 20:36] VITALS: BP 120/75
== END 2021-09-11 20:52 | disposition home or self-care (01) ==
LOC: ED 19:25
DX: U07.1 COVID-19 (principal); J06.9 Acute upper respiratory infection, unspecified
CPT/HCPCS: 87635; 99283; A9270; J7512

== ENCOUNTER 2022-01-29 16:14 | Emergency (ER) | payer MEDICAID ==
[2022-01-29 17:08] LABS: BASOPHILS % (AUTO) 0.2 %; EOSINOPHILS # (AUTO) 0.1 10^3/uL (0.0-0.7); EOSINOPHILS % (AUTO) 0.7 %; HCT - HEMATOCRIT 44.5 % (37.0-47.0); HGB - HEMOGLOBIN 14.9 g/dL (12.0-16.0); LYMPHOCYTES # (AUTO) 1.2 10^3/uL (1.5-3.5); LYMPHOCYTES % (AUTO) 11.3 %; MEAN CORPUSCULAR HEMOGLOBIN 28.6 pg (27.0-31.0); MEAN CORPUSCULAR HGB CONC 33.5 g/dL (32.0-36.0); MEAN CORPUSCULAR VOLUME 85.4 fL (81.0-99.0); MEAN PLATELET VOLUME 9.4 fL (7.9-10.8); MONOCYTES # (AUTO) 0.7 10^3/uL (0.0-1.0); NEUTROPHILS # (AUTO) 8.8 10^3/uL (1.5-6.6); NEUTROPHILS % (AUTO) 81.6 %; PLT - PLATELET COUNT 242 10^3/uL (130-450); RED BLOOD COUNT 5.21 10^6/uL (4.20-5.40); RED CELL DISTRIBUTION WIDTH 12.2 % (12.0-15.0); WHITE BLOOD COUNT 10.8 x10^3/uL (4.8-10.8)
[2022-01-29 17:20] LABS: ALBUMIN 4.3 g/dL (3.2-5.5); ALBUMIN/GLOBULIN RATIO 1.6 (1.0-2.2); BILIRUBIN,TOTAL 0.7 mg/dL (0.2-1.0); CALCIUM 9.1 mg/dL (8.5-10.3); CREATININE 0.8 mg/dL (0.4-1.0); POTASSIUM 3.3 mmol/L (3.5-5.0)
--- NOTE | 2022-01-29 17:24 | ED Physician Documentation ---
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 No diarrhea. SOme abd cramping pain mid abd. No URI symptoms.) Timing - details: Abrupt onset, Still present (still nausea and cramping, but no emesis for almost an hour now.) Associated symptoms: Abdominal pain, Loss of appetite. No: Fever, Chest pain, Hematemesis, Melena, Near syncope / syncope Contributing factors: No: Sick contact, Bad food, Recent antibiotics, Alcohol use Improved by: No: Laying still, Vomiting Worsened by: Eating Similar symptoms before: Has not had sx before Recently seen: Not recently seen Review of Systems Constitutional: denies: Fever, Chills, Myalgias Nose: denies: Rhinorrhea / runny nose, Congestion Throat: denies: Sore throat Respiratory: denies: Cough GI: reports: Abdominal Pain, Nausea, Vomiting. denies: Abdominal Swelling, Diarrhea, Hematemesis : denies: Dysuria, Frequency, Hematuria Neurologic: denies: Generalized weakness, Near syncope PD PAST MEDICAL HISTORY - Past Medical History Cardiovascular: None Respiratory: Asthma Endocrine/Autoimmune: None GI: GERD SALES STOCK ASSOCIATE: None : Kidney stones HEENT: None Psych: Depression, Anxiety, Panic attacks Musculoskeletal: Osteoarthritis Derm: None - Past Surgical History Past Surgical History: Yes - Present Medications Home Medications: Ambulatory Orders Medication Instructions Recorded Confirmed Albuterol Sulfate [Proair Hfa 2 puffs PO Q4HR PRN 01/11/17 09/11/21 Inhaler] Sumatriptan Succinate [Imitrex] 50 mg PO ONCE PRN 01/11/17 09/11/21 Topiramate [Topamax] 100 mg PO QPM 01/11/17 09/11/21 Cholecalciferol (Vitamin D3) 5,000 unit PO DAILY 07/05/20 09/11/21 [Vitamin D3] Famotidine 20 mg PO DAILY 07/05/20 09/11/21 Prazosin HCl 2 mg PO QPM 07/05/20 09/11/21 Propranolol HCl 10 mg PO TID 07/05/20 09/11/21 Sertraline HCl 100 mg PO DAILY 07/05/20 09/11/21 hydrOXYzine HCL [Hydroxyzine HCl] 50 mg PO TID 07/05/20 09/11/21 Ondansetron Odt [Zofran] 4 mg TL Q6H PRN #10 tablet 07/21/20 09/11/21 Albuterol 2.5 mg INH Q4H PRN #30 ml 09/11/21 Ibuprofen [Motrin] 800 mg PO Q8H PRN #30 tablet 09/11/21 predniSONE [Deltasone] 10 mg PO [id number] #42 tab 09/11/21 Dicyclomine [Bentyl] 10 mg PO QID PRN #15 cap 01/29/22 Ondansetron Odt [Zofran] 4 mg TL Q6H PRN #10 tablet 01/29/22 Promethazine Supp [Phenergan Supp] 25 mg ND Q6H PRN #5 supp 01/29/22 - Allergies Allergies/Adverse Reactions: Allergies Allergy/AdvReac Type Severity Reaction Status Date / Time sulfamethoxazole Allergy Unknown Verified 01/29/22 16:24 [From Septra] trimethoprim [From Septra] Allergy Unknown Verified 01/29/22 16:24 fluoxetine [From Prozac] AdvReac Headache Verified 01/29/22 16:24 - Social History Does the pt smoke?: No Smoking Status: Never smoker Does the pt drink ETOH?: No Does the pt have substance abuse?: No - Immunizations Immunizations are current?: No - POLST Patient has POLST: No PD ED PE NORMAL - Vitals Vital signs reviewed: Yes - General General: Alert and oriented X 3, Well developed/nourished, Other (appears mild discomfort lower abd. ) - HEENT HEENT: Pharynx benign - Neck Neck: Supple, no meningeal sign, No adenopathy - Cardiac Cardiac: RRR, No murmur - Respiratory Respiratory: Clear bilaterally - Abdomen Abdomen: Normal bowel sounds, Soft, Non distended, No organomegaly, Other (decreased bowel sounds. Mild tender mid abd without mass, hernia. Not specificly tender focally. No RUQ nor McBurney area tendernesses. ) - Female Female : Deferred - Rectal Rectal: Deferred - Back Back: No CVA TTP - Derm Derm: Normal color, Warm and dry - Extremities Extremities: Normal ROM s pain, No edema, No calf tenderness / cord - Neuro Neuro: Alert and oriented X 3, No motor deficit, Normal speech Results - Vitals Vitals: Vital Signs - 24 hr 01/29/22 01/29/22 16:18 18:11 Temperature 36.4 C L Heart Rate 95 78 Respiratory 14 16 Rate Blood Pressure 155/90 H 141/79 H O2 Saturation 93 100 Oxygen O2 Source Room air - Labs Labs: Laboratory Tests 01/29/22 01/29/22 17:03 17:03 WBC 10.8 RBC 5.21 Hgb 14.9 Hct 44.5 MCV 85.4 MCH 28.6 MCHC 33.5 RDW 12.2 Plt Count 242 MPV 9.4 Neut # (Auto) 8.8 H Lymph # (Auto) 1.2 L [place] # (Auto) 0.7 Eos # (Auto) 0.1 Baso # (Auto) 0.0 Absolute Nucleated RBC 0.00 Nucleated RBC % 0.0 Sodium 137 Potassium 3.3 L Chloride 102 Carbon Dioxide 25 Anion Gap 10.0 BUN 19 Creatinine 0.8 Estimated GFR (MDRD) 79 L Glucose 114 H Calcium 9.1 Total Bilirubin 0.7 AST 14 ALT 11 Alkaline Phosphatase 71 Total Protein 7.0 Albumin 4.3 Globulin 2.7 Albumin/Globulin Ratio 1.6 Lipase 28 PD MEDICAL DECISION MAKING - ED course Complexity details: reviewed results, re-evaluated patient (improved with IM meds. ), considered differential (abrupt nausea and vomiting, without localized tenderness RUQ/RLQ. Labs are good. Presume food toxin mediated or viral syndrome. Largely focus on symptoms at this point. Abd exam without peritoneal signs. ), d/w patient Departure - Departure Disposition: 01 Home, Self Care Clinical Impression: Abdominal pain Qualifiers: Abdominal location: generalized Qualified Code(s): R10.84 - Generalized abdominal pain Nausea and vomiting Qualifiers: Vomiting type: unspecified Qualified Code(s): R11.2 - Nausea with vomiting, unspecified Condition: Stable Record reviewed to determine appropriate education?: Yes Instructions: ED Nausea Vomiting Follow-Up: Jyotsna Bai ARNP [Primary Care Provider] - Prescriptions: Dicyclomine [Bentyl] 10 mg PO QID PRN #15 cap PRN Reason: Abdominal Pain Promethazine Supp [Phenergan Supp] 25 mg ND Q6H PRN #5 supp PRN Reason: Nausea / Vomiting Ondansetron Odt [Zofran] 4 mg TL Q6H PRN #10 tablet PRN Reason: Nausea / Vomiting Comments: Presume this is either a food related intolerance or toxin or more likely actually a viral's "stomach flu". There has been some like this going around that lasts for 2 to 3 days. At this point with your exam and blood test, I do not get the sense of a surgical type process such as gallbladder or appendix. We can treat symptoms with ondansetron for nausea as orally dissolving tablet. If that is not working and you are having vomiting, then you could use promethazine suppositories. Also for the pains and cramps, dicyclomine antispasmodic combined with acetaminophen regularly for pain and cramps. Recheck if not improved well over the next 1 to 2 days and return if feeling worse or in particular localized pain that is persistent and worsening, fevers, other concerns. I transmitted your prescription to [facility] pharmacy in [place]. Forms: Activity restrictions Discharge Date/Time: 01/29/22 18:13
[2022-01-29] MEDS ORDERED: MAG HYDROX/AL HYDROX/SIMETH 30 ML UDC PO STA (17:41)
[2022-01-29] MEDS ORDERED: PROMETHAZINE 25 MG/1 ML VIAL IM STA (17:41)
[2022-01-29] MEDS ORDERED: KETOROLAC 30 MG/ML VIAL IM STA (17:41)
[2022-01-29 18:11] VITALS: BP 141/79
== END 2022-01-29 18:13 | disposition home or self-care (01) ==
LOC: ED 16:14
DX: R10.84 Generalized abdominal pain (principal); R11.2 Nausea with vomiting, unspecified
CPT/HCPCS: 36415; 80053; 83690; 85025; 96372; 99282; 99283; A9270

== ENCOUNTER 2022-03-03 23:15 | Emergency (ER) | payer MEDICAID ==
--- NOTE | 2022-03-04 00:31 | ED Physician Documentation ---
PD HPI HEENT - Stated complaint Stated Complaint: FACE SWELLING - Chief complaint Chief Complaint: Heent - History obtained from History obtained from: Patient - History of Present Illness Timing - onset: How many days ago (3) Timing - duration: Days (3) Timing - details: Gradual onset, Still present Location: Tooth Improves: Medication Worsens: Swalllowing Associated symptoms: Facial swelling Similar symptoms before: Diagnosis (bad tooth) Recently seen: Not recently seen - Additional information Additional information: 42-year-old Cintia Edmonds has developed some swelling to her face associated with a tooth in her right upper jaw. She is not having as much problem with pain as she is with the swelling. She does not contract currently have a dentist and is looking for a dentist that may be able to remove what is remaining of her teeth. Review of Systems Constitutional: denies: Fever Eyes: denies: Decreased vision Ears: denies: Ear pain Nose: denies: Rhinorrhea / runny nose, Congestion Throat: reports: Dental pain / toothache. denies: Sore throat Respiratory: denies: Cough GI: denies: Vomiting PD PAST MEDICAL HISTORY - Past Medical History Past Medical History: Yes Cardiovascular: None Respiratory: Asthma Neuro: None Endocrine/Autoimmune: None GI: GERD SHIPPING COORDINATOR: None : Kidney stones HEENT: None Psych: Depression, Anxiety, Panic attacks Musculoskeletal: Osteoarthritis Derm: None - Past Surgical History Past Surgical History: Yes - Present Medications Home Medications: Ambulatory Orders Medication Instructions Recorded Confirmed Albuterol Sulfate [Proair Hfa 2 puffs PO Q4HR PRN 01/11/17 09/11/21 Inhaler] Sumatriptan Succinate [Imitrex] 50 mg PO ONCE PRN 01/11/17 09/11/21 Topiramate [Topamax] 100 mg PO QPM 01/11/17 09/11/21 Cholecalciferol (Vitamin D3) 5,000 unit PO DAILY 07/05/20 09/11/21 [Vitamin D3] Famotidine 20 mg PO DAILY 07/05/20 09/11/21 Prazosin HCl 2 mg PO QPM 07/05/20 09/11/21 Propranolol HCl 10 mg PO TID 07/05/20 09/11/21 Sertraline HCl 100 mg PO DAILY 07/05/20 09/11/21 hydrOXYzine HCL [Hydroxyzine HCl] 50 mg PO TID 07/05/20 09/11/21 Ondansetron Odt [Zofran] 4 mg TL Q6H PRN #10 tablet 07/21/20 09/11/21 Albuterol 2.5 mg INH Q4H PRN #30 ml 09/11/21 Ibuprofen [Motrin] 800 mg PO Q8H PRN #30 tablet 09/11/21 predniSONE [Deltasone] 10 mg PO [id number] #42 tab 09/11/21 Dicyclomine [Bentyl] 10 mg PO QID PRN #15 cap 01/29/22 Ondansetron Odt [Zofran] 4 mg TL Q6H PRN #10 tablet 01/29/22 Promethazine Supp [Phenergan Supp] 25 mg SC Q6H PRN #5 supp 01/29/22 Amoxicillin 875 mg PO BID #14 tablet 03/04/22 - Allergies Allergies/Adverse Reactions: Allergies Allergy/AdvReac Type Severity Reaction Status Date / Time sulfamethoxazole Allergy Unknown Verified 03/03/22 23:27 [From Septra] trimethoprim [From Septra] Allergy Unknown Verified 03/03/22 23:27 fluoxetine [From Prozac] AdvReac Headache Verified 03/03/22 23:27 - Social History Does the pt smoke?: No Smoking Status: Never smoker Does the pt drink ETOH?: No Does the pt have substance abuse?: No - Immunizations Immunizations are current?: No - POLST Patient has POLST: No PD ED PE NORMAL - Vitals Vital signs reviewed: Yes (hypertensive ) - General General: Alert and oriented X 3, No acute distress, Well developed/nourished - HEENT HEENT: Atraumatic, PERRL, EOMI, Other (There is obvious swelling to the right side of the face extending to the maxillar sinus. There are numerous carious teeth broken off at the base and #6 appears to be the tender tooth ) - Neck Neck: Supple, no meningeal sign, No bony TTP - Respiratory Respiratory: No respiratory distress - Derm Derm: Normal color, Warm and dry, No rash - Extremities Extremities: No deformity, No edema - Neuro Neuro: Alert and oriented X 3, knife edger 2-12 intact, No motor deficit, No sensory deficit, Normal speech Eye Opening: Spontaneous Motor: Obeys Commands Verbal: Oriented GCS Score: 15 - Psych Psych: Normal mood, Normal affect Results - Vitals Vitals: Vital Signs - 24 hr 03/03/22 03/03/22 03/04/22 23:24 23:30 01:10 Temperature 36.9 C 36.6 C Heart Rate 91 89 Respiratory 16 16 16 Rate Blood Pressure 134/82 H 126/80 O2 Saturation 99 100 03/04/22 01:17 Temperature Heart Rate Respiratory 16 Rate Blood Pressure O2 Saturation Oxygen O2 Source Room air PD MEDICAL DECISION MAKING - ED course Complexity details: considered differential, d/w patient ED course: 42-year-old female with a bad tooth and swelling to her face and is administered amoxicillin. She declines pain medication. Departure - Departure Disposition: Home, Self Care Clinical Impression: Dental abscess Condition: Stable Instructions: ED Abscess Dental Follow-Up: OG TORO [Physician No Access] - Prescriptions: Amoxicillin 875 mg PO BID #14 tablet Comments: Cintia, today looks like you have a bad tooth and we are providing some amoxicillin for treatment of this infection. My recommendation is to follow-up with our oral surgeon Dr. Og Toro. The amoxicillin has been E scribed to the [facility] in [place]. Discharge Date/Time: 03/04/22 01:18
[2022-03-04] MEDS ORDERED: AMOXICILLIN 250 MG Prepack 6 PO SCH ×2 (01:02→06:00)
[2022-03-04 01:12] VITALS: BP 126/80
== END 2022-03-04 01:18 | disposition home or self-care (01) ==
LOC: ED 23:15
DX: K04.7 Periapical abscess without sinus (principal)
CPT/HCPCS: 99282; 99283

== ENCOUNTER 2022-07-22 12:54 | Outpatient (CLI) | payer MEDICAID ==
[2022-07-22 18:31] LABS: BASOPHILS % (AUTO) 0.3 %; EOSINOPHILS # (AUTO) 0.2 10^3/uL (0.0-0.7); EOSINOPHILS % (AUTO) 2.4 %; HCT - HEMATOCRIT 43.3 % (37.0-47.0); HGB - HEMOGLOBIN 13.8 g/dL (12.0-16.0); LYMPHOCYTES # (AUTO) 1.5 10^3/uL (1.5-3.5); LYMPHOCYTES % (AUTO) 21.8 %; MEAN CORPUSCULAR HEMOGLOBIN 28.1 pg (27.0-31.0); MEAN CORPUSCULAR HGB CONC 31.9 g/dL (32.0-36.0); MEAN CORPUSCULAR VOLUME 88.2 fL (81.0-99.0); MEAN PLATELET VOLUME 11.4 fL (7.9-10.8); MONOCYTES # (AUTO) 0.5 10^3/uL (0.0-1.0); NEUTROPHILS # (AUTO) 4.5 10^3/uL (1.5-6.6); NEUTROPHILS % (AUTO) 67.2 %; PLT - PLATELET COUNT 229 10^3/uL (130-450); RED BLOOD COUNT 4.91 10^6/uL (4.20-5.40); RED CELL DISTRIBUTION WIDTH 13.5 % (12.0-15.0); WHITE BLOOD COUNT 6.7 x10^3/uL (4.8-10.8)
[2022-07-22 18:59] LABS: THYROID STIMULATING HORMONE 0.88 uIU/mL (0.34-5.60)
[2022-07-22 19:01] LABS: ALBUMIN 4.1 g/dL (3.2-5.5); ALBUMIN/GLOBULIN RATIO 1.3 (1.0-2.2); ALKALINE PHOSPHATASE 64 IU/L (42-121); ALT ALANINE AMINOTRANSFERASE 11 IU/L (10-60); AST ASPARTATE AMINOTRANSFERASE 17 IU/L (10-42); BILIRUBIN,TOTAL 0.7 mg/dL (0.2-1.0); BUN - BLOOD UREA NITROGEN 18 mg/dL (6-20); CARBON DIOXIDE - CO2 23 mmol/L (21-32); CHLORIDE 106 mmol/L (101-111); CHOLESTEROL 165 mg/dL; CREATININE 0.8 mg/dL (0.4-1.0); GFR - MDRD 79 (>89); GLUCOSE 85 mg/dL (70-100); HDL CHOLESTEROL 55 mg/dL; LDL CHOLESTEROL,CALCULATED 97 mg/dL; LDL/HDL RATIO 1.8 (<4.4); POTASSIUM 4.2 mmol/L (3.5-5.0); SODIUM 135 mmol/L (135-145); TOTAL PROTEIN 7.2 g/dL (6.7-8.2); TRIGLYCERIDES 63 mg/dL; VLDL CHOLESTEROL 13 mg/dL
[2022-07-22 19:02] LABS: FREE T4 (FREE THYROXINE) 1.08 ng/dL (0.58-1.64)
== END 2022-07-22 12:55 | disposition home or self-care (01) ==
LOC: LAB.N 12:54
PROVIDERS: ATTEND Nurse Practitioner
DX: R22.1 Localized swelling, mass and lump, neck (principal); Z13.220 Encounter for screening for lipoid disorders; R53.83 Other fatigue
CPT/HCPCS: 36415; 80053; 80061; 83721; 84439; 84443; 85025

== ENCOUNTER 2022-08-04 14:38 | Outpatient (CLI) | payer MEDICAID ==
--- NOTE | 2022-08-04 16:06 | Ultrasound Report ---
PROCEDURE: Head or Neck Soft Tissue INDICATIONS: NECK MASS TECHNIQUE: Real-time scanning was performed of the thyroid gland, with image documentation. COMPARISON: None FINDINGS: Right: Thyroid lobe measures 5.8 x 4.0 x 2.4 cm, and is homogeneous in echotexture. Left: Thyroid lobe measures 6.3 x 2.4 x 2.2 cm, and is homogenous in echotexture. Isthmus: 3 mm thick. Nodule number: One Location: Right superior Size: 1.3 x 1.1 x 0.9 cm. Composition: Solid Echogenicity: Hypoechoic Shape: wider than tall. Margins: Smooth Echogenic foci: None Total points: 4 ACR TI-RADS category: 4 Nodule number: Two Location: Right superior/mid Size: 2.0 x 1.7 x 1.8 cm. Composition: Mixed Echogenicity: Hypoechoic Shape: wider than tall. Margins: Smooth Echogenic foci: Macrocalcification Total points: 4 ACR TI-RADS category: 4 Nodule number: Three Location: Right mid Size: 1.5 x 1.4 x 1.4 cm. Composition: Mixed Echogenicity: Hypoechoic Shape: wider than tall. Margins: Smooth Echogenic foci: None Total points: 3 ACR TI-RADS category: 3 Nodule number: Four Location: Left superior Size: 0.9 x 0.7 x 0.6 cm. Composition: Cystic Echogenicity: Anechoic Shape: wider than tall. Margins: Smooth Echogenic foci: None Total points: 0 ACR TI-RADS category: 1 Nodule number: 5 Location: Left superior/med Size: 1.4 x 1.0 x 0.8 cm. Composition: Solid Echogenicity: Hypoechoic Shape: wider than tall. Margins: Smooth Echogenic foci: None Total points: 4 ACR TI-RADS category: 4 Nodule number: 6 Location: Left mid Size: 1.8 x 1.7 x 1.2 cm. Composition: mixed Echogenicity: Hypoechoic Shape: wider than tall. Margins: Smooth Echogenic foci: None Total points: 3 ACR TI-RADS category: 3 IMPRESSION: Lesions 1 and 5 are considered category 4. Secondary to size, follow-up in 1, 2, 3 and 5 years is rec ommended. Lesion 2 is considered category 4. Secondary to size, fine-needle aspiration is recommended. Lesions 3 and 6 are considered category 3. Secondary to size, lesion 3 FNA is recommended and lesion 6 follow-up imaging at 1, 2, 3 and 5 years. Lesion 4 is considered category 1. No further follow-up. ACR TI-RADS definitions and recommendations: TI-RADS 1 (benign): 0 points. FNA not needed. TI-RADS 2 (not suspicious): 2 points. FNA not needed. TI-RADS 3 (mildly suspicious): 3 points. "FNA if 2.5 cm or larger, follow up if 1.5 cm or larger (at 1, 3, and 5 years). TI-RADS 4 (moderately suspicious): 4-6 points. "FNA if 1.5 cm or larger, follow up if 1 cm or larger (at 1, 2, 3, and 5 years). TI-RADS 5 (highly suspicious): 7 points or more. "FNA if 1 cm or larger, follow up if 0.5 cm or larger (every year for 5 years). Reviewed by: Daisy Ham MD on 08/04/2022 4:05 PM PST Approved by: Daisy Ham MD on 08/04/2022 4:05 PM PST Station ID: [id number]
== END 2022-08-04 14:39 | disposition home or self-care (01) ==
LOC: DI 14:38
PROVIDERS: ATTEND Nurse Practitioner
DX: E04.2 Nontoxic multinodular goiter (principal)

== ENCOUNTER 2022-09-17 13:14 | Outpatient (CLI) | payer MEDICAID ==
[2022-09-17] MEDS ORDERED: LIDOCAINE-MPF 1% 5 ML VIAL ONE (13:27)
--- NOTE | 2022-09-17 16:56 | Ultrasound Report ---
PROCEDURE: Head or Neck Soft Tissue INDICATIONS: THYROID NODULE TECHNIQUE: Real time scanning was performed of the neck region of interest, with image documentation . COMPARISON: None. FINDINGS: The previously visualized right lateral/mid thyroid nodule visualized on the comparison ult rasound dated 08/04/2022 has decreased in size from the prior study. Additionally, this had a predomi nantly cystic appearance on the prior study and now appears predominantly solid. This nodule now aracely ures 1.5 x 1.4 x 1.3 cm. It is smoothly marginated, hypoechoic with macrocalcifications present. Give n the decreased size, fine-needle aspiration was canceled. The predominantly cystic, lobulated thyroid nodule in the right mid thyroid gland is unchanged and me asures 1.5 x 1.3 x 1.2 cm. IMPRESSION: 1. Decreased size of the nodule previously labeled as nodule #2. TI-RADS 4. Given size, annual sonogr aphic follow-up recommended. 2. Stable thyroid nodule labeled nodule #3. TI- RADS 3. Annual sonographic follow-up recommended. Reviewed by: Keke Jones MD on 09/17/2022 4:55 PM PST Approved by: Keke Jones MD on 09/17/2022 4:55 PM PST Station ID: [id number]
== END 2022-09-17 13:15 | disposition home or self-care (01) ==
LOC: DI 13:14
PROVIDERS: ATTEND Nurse Practitioner
DX: E04.2 Nontoxic multinodular goiter (principal)